=== PATIENT | male | born 1970 | race Caucasian/White ===

== ENCOUNTER 2018-06-10 09:43 | Emergency (ER) | END 2018-06-10 10:45 | disposition home or self-care (01) ==

== ENCOUNTER 2018-06-16 19:31 | Emergency (ER) | END 2018-06-16 23:14 | disposition home or self-care (01) ==

== ENCOUNTER 2018-09-24 08:36 | Emergency (ER) | END 2018-09-24 10:04 | disposition home or self-care (01) ==